=== PATIENT | female | born 1975 | race Caucasian/White ===

== ENCOUNTER 2022-04-27 08:28 | Outpatient (CLI) | payer SELFPAY | END 2022-04-27 08:29 | disposition home or self-care (01) | LOC: CSHWCC 08:28 | PROVIDERS: ATTEND Nurse Practitioner Family | DX: T81.89XD Other complications of procedures, not elsewhere classified, subsequent encounter (principal) | CPT/HCPCS: 97606; 99203; G0463 ==

== ENCOUNTER 2022-05-03 11:35 | Outpatient (CLI) | payer SELFPAY | END 2022-05-03 11:36 | disposition home or self-care (01) | LOC: CSHWCC 11:35 | PROVIDERS: ATTEND Nurse Practitioner Family | DX: T81.89XD Other complications of procedures, not elsewhere classified, subsequent encounter (principal) | CPT/HCPCS: 97605 ==

== ENCOUNTER 2022-05-06 10:29 | Outpatient (CLI) | payer SELFPAY | END 2022-05-06 10:30 | disposition home or self-care (01) | LOC: CSHWCC 10:29 | PROVIDERS: ATTEND Nurse Practitioner Family | DX: T81.89XD Other complications of procedures, not elsewhere classified, subsequent encounter (principal) | CPT/HCPCS: 97605 ==